=== PATIENT | female | born 1995 | race Caucasian/White ===

== ENCOUNTER → 2024-06-04 13:47 | Outpatient (REF) | payer OTHER, SELFPAY | LOC: HWRAD 13:47 | PROVIDERS: ATTENDING PHYSICIAN Obstetrics & Gynecology; FAMILY PHYSICIAN Physician Assistant | DX: N80.123 Deep endometriosis of bilateral ovaries (principal) | CPT/HCPCS: 76830; 76856 ==

== ENCOUNTER → 2024-12-19 07:26 | Outpatient (REF) | payer BC, SELFPAY | LOC: RAD 07:26 | PROVIDERS: ATTENDING PHYSICIAN Obstetrics & Gynecology; FAMILY PHYSICIAN Physician Assistant | DX: R10.32 Left lower quadrant pain (principal) | CPT/HCPCS: 76830; 76856 ==

== ENCOUNTER 2025-09-20 10:30 | Emergency (ER) | payer BC, SELFPAY ==
[2025-09-20 10:33] VITALS: BP 119/88
[2025-09-20 10:55] VITALS: BP 109/87
[2025-09-20 10:58] VITALS: BMI 31.7
--- NOTE | 2025-09-20 10:59 | ED.GENMED ---
History of Present Illness
General
Chief Complaint: Chest Problem
Source: patient
Exam Limitations: none
Time Seen by Provider: 09/20/25 10:52
Nursing documentation reviewed up to this point in time: agreed with
History of Present Illness
History of Present Illness:
30-year-old female with history of anemia, PE 08/09/2025 on Eliquis presents stating she awakened this a.m. with mid chest, nonradiating burning pain with shortness of breath. Walking to the bathroom at work 2 hours ago, SOB and pain 9/10 at its
worst along with feeling heart was racing. Sat down, rested and HR seemed to slow but then occurred again a short while later. Noted a sore throat this a.m. also, no cough, denies fever, n/v/d/c. CP now 6/10, waxes and wanes. Still feels like 'it's
a little harder to breathe.' Does not feel heart racing at this time.
Past History
Past History
ED Past Surgical History: Other (adenoidectomy)
Social History
Tobacco: Non-smoker
Alcohol: None
Personal:
Living: with family
Employment: Employed
Phy Exam
Physical Exam
Physical Exam:
GENERAL: No acute distress. A&Ox3.
CONSTITUTIONAL: Afebrile.
EYES: clear, conjunctivae normal
ENMT: moist mucus membranes, Pharynx nl
RESPIRATORY: Regular respirations, nonlabored, lungs clear.
CARDIOVASCULAR: Regular rate and rhythm, no murmurs, no rubs.
GI: Soft, nontender, normal BS
MUSCULOSKELETAL: Moves with ease. Well perfused.
SKIN: Warm, dry, pink
PSYCH: Normal mood and affect. Well kept, interactive and appropriate
NEUROLOGIC: Awake, alert and oriented. No focal neurological deficits
Course
Orders/Labs/Results
Orders:
Orders
09/20/25 10:37
EKG [Electrocardiogram (*1)] Urgent
Reason for Study: Chest Pain
EKG- Treatment ONCE
09/20/25 11:32
CT Chest PE Study Urgent
Comment:
Reason For Exam: On [facility] Awad PEs 07/2025, now CP and SOB
09/20/25 11:37
Test Result ONCE
09/20/25 11:43
Complete Blood Count/With Diff Urgent
Comprehensive Metabolic Panel Urgent
HCG, Serum Qualitative Screen Urgent
Abnormal Lab Results
09/20/25
11:43
MCH 32.4 H pg
(27.0-31.0)
RDW 11.0 L %
(11.5-14.5)
Absolute Lymphs (auto) 1.1 L 10^3/uL
(1.2-3.4)
Absolute Monos (auto) 0.7 H 10^3/uL
(0.1-0.6)
Lymphocytes % 18.9 L %
(20.5-51.1)
Monocytes % 12.1 H %
(1.7-9.3)
09/20/25 11:43
09/20/25 11:43
Vital Signs
Initial and Last Documented VS:
Initial Vital Signs
Temp Pulse Resp BP Pulse Ox
98.2 F 77 16 119/88 95
09/20/25 10:33 09/20/25 10:33 09/20/25 10:33 09/20/25 10:33 09/20/25 10:33
Last Documented Vital Signs
Temp Pulse Resp BP Pulse Ox
98.2 F 71 12 111/83 100
09/20/25 10:33 09/20/25 13:45 09/20/25 13:45 09/20/25 12:00 09/20/25 13:45
Doctor Of Naprapathy consulted with Physician
Doctor Of Naprapathy consulted with physician?: Yes
Name of Physician Consulted: Ingrid
MDM/Problems Addressed
Differential Diagnosis Includes:
URI, PNA, Eliquis failure w new or worsening PE, GERD
MDM/Problems Addressed:
30-year-old female with history of anemia, PE 07/31/2025m on Eliquis presents stating she awakened this a.m. with mid chest, nonradiating burning pain with shortness of breath. Walking to the bathroom at work 2 hours ago, SOB and pain 06/26 at its
worst along with feeling heart was racing. Sat down, rested and HR seemed to slow but then occurred again a short while later. Noted a sore throat this a.m. also, no cough, denies fever, n/v/d/c. CP now 03/26, waxes and wanes. Still feels like 'it's
a little harder to breathe.' Does not feel heart racing at this time.
EKG NSR HR 70
CBC unremarkable
CMP: Normal
HCG neg
1:[address] PE study Neg for PE or any acute findings.
Copy of report given to pt.
Stable for discharge
*Pulse Oximetry
SaO2: 95
Oxygen Mode of Delivery: Room air
Patient hypoxic: no
*EKG
EKG Intrepretation Date: 09/20/25
Interpretation: normal
Heart Rate: 70
Rate: normal
Rhythm: sinus
Baring: normal axis
Interval: normal interval
QRS Pattern: normal QRS
Ischemia: no ischemia
*Critical Care Note
Total Time (30-74mins, 75-104mins- exclusive of procedures): Not Applicable
ED Attending Note
-
Portions of this chart may have been created with voice recognition software.� Occasional wrong word or��sound alike� substitutions may have occurred due to the inherent limitations of voice recognition software.
Discharge Plan
Departure
Patient Disposition: Home (Routine Discharge)
Date of Disposition: 09/20/25
Time of Disposition: 13:48
Patient with high blood pressure during this ER visit?: No
Condition: Good
Discharge Problem:
Atypical chest pain, URI (upper respiratory infection)
Instructions: Chest Pain (DC), Sore Throat - Adult
Prescriptions:
No Action
multivitamin Tablet
1 tab PO DAILY
cyclobenzaprine 7.5 mg Tablet
7.5 mg PO PRN PRN (Reason: pain)
Vitamin C 500 MG
1 gummy PO DAILY
naproxen 550 mg
550 mg PO PRN PRN (Reason: pain)
Referrals:
Mavis Yi PA [Family Provider, Family Practice] - As needed
Activity Restrictions/Additional Instructions:
As we discussed, your CAT scan shows nothing worrisome. Continue your current medications.
You may be developing an upper respiratory infection.
Interventions
Interventions:
*Risk Screen - Suicide Last Done: 09/20/25 10:33
*General Assessment Last Done: 09/20/25 10:58
*Neglect/Abuse Screening Last Done: 09/20/25 10:33
*ED COVID-19 Vaccine History Last Done: 09/20/25 10:58
*ED Influenza Vaccine History Last Done: 09/20/25 10:58
[facility] Fall Risk Assessment Tool Last Done: 09/20/25 10:58
*Nursing Disposition Last Done: 09/20/25 14:10
ED- Cardiac Assessment Last Done: 09/20/25 10:58
ED- Pulmonary Assessment Last Done: 09/20/25 10:58
Discharge Date and Time
Discharge Date/Time: 09/20/25 14:11
Print Language: LAO
[2025-09-20 11:00] VITALS: BP 114/75
[2025-09-20 11:58] LABS: Hematocrit 39.5 % (37.0-47.0); Hemoglobin 14.4 g/dL (12.0-16.0); Mean Corp Hgb Conc. 36.5 g/dL (33.0-37.0); Mean Corpuscular Volume 89.0 fL (81.0-99.0); Nucleated Red Blood Cells % 0 %; Platelet Count 232 10^3/uL (130-400); Red Cell Dist. Width 11.0 % (11.5-14.5)
[2025-09-20 12:00] VITALS: BP 111/83
[2025-09-20 12:06] LABS: HCG, Serum Qualitative Screen Negative
[2025-09-20 12:17] LABS: ALT (SGPT) 31 U/L (0-35); AST (SGOT) 27 U/L (14-36); Albumin 3.9 g/dl (3.5-5.0); Alkaline Phosphatase 48 U/L (38-126); Blood Urea Nitrogen 17 mg/dl (7-17); Calcium 9.6 mg/dl (8.4-10.2); Carbon Dioxide 29 mmol/L (22-30); Chloride 105 mmol/L (98-107); Estimated Creatinine Clearance > 125 ml/min; Glucose 90 mg/dl (70-99); Potassium 4.5 mmol/L (3.5-5.1); Sodium 136 mmol/L (135-145); Total Protein 6.5 g/dl (6.3-8.2); eGFR > 60.00
== END 2025-09-20 14:11 | disposition home or self-care (01) ==
LOC: EMR 10:30
PROVIDERS: Registered Nurse; EMERGENCY PHYSICIAN Emergency Medicine; FAMILY PHYSICIAN Physician Assistant
DX: R07.89 Other chest pain (principal); J06.9 Acute upper respiratory infection, unspecified; D64.9 Anemia, unspecified; Z79.01 Long term (current) use of anticoagulants; Z86.711 Personal history of pulmonary embolism
CPT/HCPCS: 99284; 71275; 80053; 84703; 85025; 93005; Q9967